=== PATIENT | female | born 1985 ===

== ENCOUNTER 2019-01-09 13:45 | Inpatient (IN) | payer OTHER ==
[~2019-01-09] VITALS: Ht 157.5 cm; Wt 94.3 kg
[2019-01-14] MEDS ORDERED: PRENATAL PLUS1 EAC2 PO (06:41)
== END 2019-01-16 12:34 | disposition home or self-care (01) | DRG 788 ==
LOC: O/R 13:45 → OB/GYN 01-14 07:01 → O/R 01-14 08:30 → OB/GYN 01-14 10:40 → O/R 01-14 13:45 → OB/GYN 01-16 12:34
PROVIDERS: ADMIT Obstetrics & Gynecology
PROC: 4A1HXCZ Monitoring of Products of Conception, Cardiac Rate, External Approach (ICD-10-PCS; 2019-01-14)
PROC: 10D00Z1 Extraction of Products of Conception, Low, Open Approach (ICD-10-PCS; principal; 2019-01-14 08:30)
DX: O82 Encounter for cesarean delivery without indication (principal); O34.211 Maternal care for low transverse scar from previous cesarean delivery; Z3A.39 39 weeks gestation of pregnancy; Z37.0 Single live birth

== ENCOUNTER 2020-11-05 07:57 | Outpatient (CLI) | payer OTHER ==
[~2020-11-05 07:57] MED LIST: PRENATAL PLUS1 EAC2 PO
== END 2020-11-05 08:00 | disposition home or self-care (01) ==
LOC: SONOGRAMA 07:57
PROVIDERS: ATTEND Pathology Anatomic Pathology & Clinical Pathology
DX: E04.8 Other specified nontoxic goiter (principal); D34 Benign neoplasm of thyroid gland; E06.5 Other chronic thyroiditis